=== PATIENT | female | born 1950 | race Caucasian/White ===

== ENCOUNTER 2021-01-19 09:08 | Emergency (ER) | payer MEDICARE, OTHER ==
[~2021-01-19 09:08] MED LIST: LISINOPRIL-HCT1 EAC2 PO; NORCO 5-325 TA1 EACH PO; SYNTHROID25 MCG PO
[2021-01-19] MEDS ORDERED: BACTRIM DS TAB1 EACH PO (10:20)
[2021-01-19] MEDS ORDERED: CEPHALEXIN500 MG PO (10:20)
== END 2021-01-19 10:44 | disposition home or self-care (01) ==
LOC: ER1 09:08
DX: L76.82 Other postprocedural complications of skin and subcutaneous tissue (principal); S81.011D Laceration without foreign body, right knee, subsequent encounter; E11.9 Type 2 diabetes mellitus without complications; I10 Essential (primary) hypertension; W19.XXXD Unspecified fall, subsequent encounter
CPT/HCPCS: 99283

== ENCOUNTER 2021-07-27 18:07 | Emergency (ER) | payer MEDICARE, OTHER ==
[~2021-07-27 18:07] MED LIST changes: +BACTRIM DS TAB1 EACH PO; +CEPHALEXIN500 MG PO
[2021-07-27 19:34] LABS: HEMOGLOBIN 12.4 gm/dl (12.3-15.3); RED BLOOD COUNT 4.02 M/UL (4.00-5.10); WHITE BLOOD COUNT 9.9 K/UL (4.5-11.0)
== END 2021-07-27 22:08 | disposition home or self-care (01) ==
LOC: ER1 18:07
PROVIDERS: Preventive Medicine Occupational Medicine
DX: R07.89 Other chest pain (principal); I10 Essential (primary) hypertension; I25.10 Atherosclerotic heart disease of native coronary artery without angina pectoris; E11.9 Type 2 diabetes mellitus without complications
CPT/HCPCS: 71045; 80053; 81001; 82550; 82553; 83880; 84484; 85025; 85652; 86140; 87086; 93005; 99285

== ENCOUNTER 2021-08-25 10:37 | Observation (INO) | payer MEDICARE, OTHER ==
[~2021-08-25] VITALS: Ht 167.6 cm; Wt 117.9 kg
[~2021-08-25 10:37] MED LIST changes: -SYNTHROID25 MCG PO; +SYNTHROID50 MCG PO
[2021-08-25 11:52] LABS: HEMOGLOBIN 13.1 gm/dl (12.3-15.3); RED BLOOD COUNT 4.29 M/UL (4.00-5.10); WHITE BLOOD COUNT 7.9 K/UL (4.5-11.0)
[2021-08-25] MEDS ORDERED: AMLODIPINE BESYL5 MG PO (17:31)
[2021-08-26 01:55] LABS: HEMOGLOBIN 12.7 gm/dl (12.3-15.3); RED BLOOD COUNT 4.11 M/UL (4.00-5.10); WHITE BLOOD COUNT 9.4 K/UL (4.5-11.0)
[2021-08-26 02:19] LABS: BUN/CREATININE RATIO 16 (0-10)
[2021-08-26] MEDS ORDERED: ASPIRIN EC81 MG PO (12:20)
== END 2021-08-26 13:49 | disposition home or self-care (01) ==
LOC: ER1 10:37 → CDU 15:02 → MED SURG 4 15:02
PROVIDERS: Physician Assistant Medical; ADMIT Internal Medicine
DX: R07.89 Other chest pain (principal); I48.91 Unspecified atrial fibrillation; I49.1 Atrial premature depolarization; I10 Essential (primary) hypertension; I12.9 Hypertensive chronic kidney disease with stage 1 through stage 4 chronic kidney disease, or unspecified chronic kidney disease; N18.30 Chronic kidney disease, stage 3 unspecified; E04.1 Nontoxic single thyroid nodule; E27.8 Other specified disorders of adrenal gland; E03.9 Hypothyroidism, unspecified; K44.9 Diaphragmatic hernia without obstruction or gangrene; E66.9 Obesity, unspecified; Z68.41 Body mass index [BMI] 40.0-44.9, adult; Z79.890 Hormone replacement therapy; Z79.899 Other long term (current) drug therapy; Z90.49 Acquired absence of other specified parts of digestive tract; Z98.890 Other specified postprocedural states
CPT/HCPCS: ECHO; 36415; 80048; 80053; 81001; 82550; 82553; 83735; 83880; 84439; 84443; 84484; 85025; 85027; 85379; 85610; 85730; 93005; 93306; 99285; G0378; J1650; J7030; Q9967

== ENCOUNTER → 2021-09-15 | Outpatient (CLI) | payer MEDICARE, OTHER ==
[~2021-09-15] MED LIST changes: +AMLODIPINE BESYL5 MG PO; +ASPIRIN EC81 MG PO
== END ==
LOC: US 09:15
DX: E04.1 Nontoxic single thyroid nodule (principal)
CPT/HCPCS: 76536